=== PATIENT | female | born 1965 | race Caucasian/White ===

== ENCOUNTER 2017-12-23 15:12 | Inpatient (IN) | payer MEDICARE, MEDICAID ==
[~2017-12-23] VITALS: Ht 165.1 cm; Wt 101.9 kg
[~2017-12-23 15:12] MED LIST: CARISOPRODOL 3350 MG PO; CITALOPRAM HBR40 MG PO; DILAUDID4 MG PO; FENTANYL PATCH75 MCG TP; MARINOL10 MG PO; NEXIUM40 MG PO; OXYCODONE HCL15 MG PO; OXYCONTIN15 MG PO; PERCOCET 10-321 EACH PO; TEGRETOL XR100 MG PO; TRAZODONE HCL100 MG PO; XANAX 0.5 MG0.5 MG PO
[2017-12-23 15:18] VITALS: BP 125/78
[2017-12-23] MEDS ORDERED: DOXEPIN 50MG CA50 M1 PO (15:28)
[2017-12-23] MEDS ORDERED: VALIUM10 MG PO (15:29)
[2017-12-23] MEDS ORDERED: LISINOPRIL40 MG PO (15:29)
[2017-12-23 15:43] LABS: ABSOLUTE BASOPHILS 0.1 thou/uL (0.0-0.2); ABSOLUTE EOSINOPHILS 0.4 thou/uL (0.0-0.7); ABSOLUTE LYMPHOCYTES 3.8 thou/uL (0.8-5.3); ABSOLUTE MONOCYTES 1.1 thou/uL (0.0-1.2); ABSOLUTE NEUTROPHILS 8.9 thou/uL (1.6-8.1); BASOPHILS 0.7 %; EOSINOPHILS 2.8 %; HEMATOCRIT 41.2 % (37.0-47.0); HEMOGLOBIN 13.7 gm/dL (12.0-15.0); LYMPHOCYTES 26.5 %; MCH 29.3 pg (26.0-34.0); MCHC 33.3 g/dL (28.0-37.0); MONOCYTES 7.8 %; MPV 7.7 fl. (7.2-11.1); NUCLEATED RBCS 0 /100WBC; PLATELET COUNT* 293 thou/uL (150-400); POLYS 62.2 %; RBC 4.68 mil/uL (4.20-5.00); RDW-CV 14.9 % (10.5-14.5); WBC 14.2 thou/uL (4.0-11.0)
[2017-12-23 15:52] LABS: ANION GAP 8 mmol/L (7-16); BUN 23 mg/dL (7-18); CALCIUM 8.1 mg/dL (8.5-10.1); CHLORIDE 95 mmol/L (98-107); CO2 28 mmol/L (21-32); CREATININE 1.5 mg/dL (0.6-1.3); GLUCOSE 212 mg/dL (70-99); POTASSIUM 3.9 mmol/L (3.5-5.1); SODIUM 131 mmol/L (136-145)
[2017-12-23 16:03] LABS: ALBUMIN 3.5 g/dL (3.4-5.0); ALKALINE PHOSPHATASE 105 U/L (46-116); LIPASE 178 U/L (73-393); NT-PRO BRAIN NAT PEPTIDE 18 pg/mL (<300); SGOT 10 U/L (15-37); SGPT 19 U/L (30-65); TOTAL BILIRUBIN 0.2 mg/dL (<0.1-1.0); TOTAL PROTEIN 7.1 g/dL (6.4-8.2); TROPONIN-I LEVEL <0.06 ng/mL (<0.06)
[2017-12-23 17:40] VITALS: BP 103/80
[2017-12-23 18:00] VITALS: BP 103/72
[2017-12-23 20:00] VITALS: BP 93/54
[2017-12-24] VITALS: BP 109/63
[2017-12-24] MEDS ORDERED: LYRICA 50 MG50 MG PO (00:47)
[2017-12-24 03:36] LABS: URINE BILIRUBIN NEGATIVE (Negative); URINE BLOOD NEGATIVE (Negative); URINE CLARITY CLEAR; URINE COLOR YELLOW; URINE GLUCOSE-RANDOM NEGATIVE (Negative); URINE KETONES NEGATIVE (Negative); URINE LEUKOCYTES-REFLEX NEGATIVE (Negative); URINE NITRITE-REFLEX NEGATIVE (Negative); URINE PROTEIN NEGATIVE (Negative); URINE SPECIFIC GRAVITY <= 1.005 (1.005-1.030); URINE UROBILINOGEN 0.2 E.U./dl (0.2-1.0)
[2017-12-24 03:43] LABS: AMP/METHAMP Negative (Negative); BARBITURATES Negative (Negative); BENZODIAZEPINES POSITIVE (Negative); COCAINE Negative (Negative); METHADONE Negative (Negative); OPIATES Negative (Negative); PCP Negative (Negative); THC Negative (Negative)
[2017-12-24 04:00] VITALS: BP 141/74
--- NOTE | 2017-12-24 05:24 | NUR ---
ASSUMED PT CARE AT 1930. ADMISSION ASSESSMENT COMPLETED CHARTED. ABLE TO MAKE NEEDS KNOWN. THREATENED AMA AFTER DOCTOR ORDERED TO HOLD MEDICATION UNTIL NEUROLOGY COULD SEE HER TODAY. THEN, WHILE SHOWING HER THE MENU, SHE THREATENED TO LEAVE BECAUSE SHE WAS ON CARB CONTROLL DIET AFTER BLOOD SUGAR WAS 202 ON ADMISSION. FELT SHE HAD NO CHOICE. PT IS RESTING IN BED AT THIS TIME, VERY DROWSY AT TIMES. WILL CONTINUE TO MONITOR.
--- NOTE | 2017-12-24 07:02 | NUR ---
PT STARTED YELLING OUT STATING THAT SHE WAS MAD AND WASNT DEALING WITH IT ANYMORE. THIS NURSE WENT INTO THE ROOM AND PT STATED THAT IT WASNT RIGHT THAT SHE HAS TO WAIT FOR NEUROLOGY TO SHOW UP TODAY FOR HER TO GET HER MEDICATIONS THAT THE DOCTOR SAID THAT SHE NEEDED TO WAIT FOR. SHE SAID SHE WAS GOING TO LEAVE, STARTED PACKING HER STUFF, TOOK OUT HER IV, BANDAGED HER BACK BURN UP, AND SHE CALLED HER BOYFRIEND TO COME PICK HER UP. HAD SUPERVISOR COOK ROOM TAKE PT DOWNSTAIRS, NOTIFIED DR AND NEUROLOGY ABOUT PT LEAVING AT 0655. STATED SHE HAD TO GO TO HER DOCTOR TODAY AND HER PAIN DOCTOR TOMORROW. SAID IT WASNT THIS NURSES FAULT. PT LEFT THE BUILDING AT THIS TIME.
--- NOTE | 2017-12-25 10:21 | EKG ---
[place] [address] ELECTROCARDIOGRAM REPORT Name: TIENFERNANDEZ Room: [address] [place] M.R.#: [id number] Admission: 12/23/17 Attend Phys: Gibran Estrada MD Discharge: 12/24/17 Date of : 65 Report #: [id number] THIS REPORT FOR: //name// [facility] ED Test Date: 2017-12-23 Test Time: 15:38:58 Pat Name: FERNANDEZ CHAUHAN Department: Room: [facility] Gender: F Edger Feeder: Angélica MAN : 1965 Requested By: Ngozi Holley Order Number: [id number] MD: Juan Carlos Alves Measurements Intervals [employer] Rate: 88 P: 84 AR: 184 QRS: 85 QRSD: 90 T: 60 QT: 371 QTc: 449 Interpretive Statements Sinus rhythm Probable left atrial enlargement Low voltage, precordial leads Compared to ECG 12/14/2013 15:34:33 Low QRS voltage now present Sinus bradycardia no longer present Electronically Signed On 12-25-2017 10:21:27 CDT by Juan Carlos Alves [email or web address] <ELECTRONICALLY SIGNED> By: Juan Carlos Alves MD, FACC 12/25/17 1021 1538 [id number] Juan Carlos Alves MD, FAC /EPI
== END 2017-12-24 07:11 | disposition still patient (30) | DRG 64 ==
LOC: M.ERS 15:12 → M.TBA-ER 17:10 → M.2W 17:51
PROVIDERS: Nurse Practitioner; ADMIT Internal Medicine
DX: I63.9 Cerebral infarction, unspecified (principal); G93.40 Encephalopathy, unspecified; F11.20 Opioid dependence, uncomplicated; I10 Essential (primary) hypertension; E11.9 Type 2 diabetes mellitus without complications; F41.9 Anxiety disorder, unspecified; F32.9 Major depressive disorder, single episode, unspecified; F17.210 Nicotine dependence, cigarettes, uncomplicated; G89.29 Other chronic pain; E86.0 Dehydration; D72.829 Elevated white blood cell count, unspecified; Z53.21 Procedure and treatment not carried out due to patient leaving prior to being seen by health care provider; Z90.710 Acquired absence of both cervix and uterus; Z88.1 Allergy status to other antibiotic agents